=== PATIENT | male | born 1960 ===

== ENCOUNTER 2019-06-08 14:46 | Emergency (ER) | payer OTHER, SELFPAY ==
[~2019-06-08 14:46] MED LIST: Iopamidol-370 76% 500 ML 1 ML ONE
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
[2019-06-08] MEDS ORDERED: Acetaminophen 500 MG TAB ONE (15:59)
== END 2019-06-08 16:12 | disposition home or self-care (01) ==
LOC: ERS 14:46
DX: R10.9 Unspecified abdominal pain (principal); I10 Essential (primary) hypertension; E78.00 Pure hypercholesterolemia, unspecified; F17.290 Nicotine dependence, other tobacco product, uncomplicated; Z79.899 Other long term (current) drug therapy; Z79.82 Long term (current) use of aspirin; V89.2XXA Person injured in unspecified motor-vehicle accident, traffic, initial encounter
CPT/HCPCS: 70450; 71260; 72125; 74177; Q9967